=== PATIENT | female | born 1950 | race Caucasian/White ===

== ENCOUNTER 2017-12-30 06:18 | Observation (INO) ==
[2017-12-30] MEDS ORDERED: Levofloxacin 500 mg Premix Inj 500 MG/100 ML PIGGYBACK IV.SIG PRN (07:00)
[2017-12-30] MEDS ORDERED: Gentamicin/NS 80 mg Premix 100 ML IV.SIG PRN (07:01)
[2017-12-30] MEDS ORDERED: Metoprolol Tartrate 25 MG Tablet PO SCH (07:15)
[2017-12-30] MEDS ORDERED: Chlorhexidine Gluconate 2% 1 Pack (2 Cloths) TOPICAL SCH (07:15)
[2017-12-30] MEDS ORDERED: Bupivacaine/Epinephrine PF Inj 0.5% 10 ML Vial ONE (07:25)
[2017-12-30] MEDS ORDERED: Microfibrillar Collagen Hemostat 1 GM Packet TOPICAL ONE (07:26)
[2017-12-30] MEDS ORDERED: Sodium Chlor 0.9% Inj 500 ML IV.SIG SCH (08:00)
[2017-12-30] MEDS ORDERED: Naloxone Inj 0.4 MG/ML Vial IV.PUSH PRN (10:00)
[2017-12-30] MEDS ORDERED: Ibuprofen 600 MG Tablet PO PRN (10:24)
[2017-12-30] MEDS ORDERED: fentaNYL Citrate Inj 100 MCG/2 ML Ampul ONE (10:25)
[2017-12-30] MEDS ORDERED: HYDROmorphone PCA Inj 6 MG/30 ML PCA.VIAL PCA PRN (10:29)
[2017-12-30] MEDS ORDERED: *morphine SULFATE 4 MG/ML PERIprocedure ONLY ONE ×2 (10:29→10:53)
--- NOTE | 2017-12-30 10:40 | P.PCNOB ---
Pre-Op/Post-Op Diagnoses Operation Date: 12/30/17 08:00 <No data on this case meets the specified criteria> thickened endometrium, stenotic cervix Procedure: Procedures Operation Date: 12/30/17 08:00 <No data on this case meets the specified criteria> EUA , LAVH, BSO , cystoscopy Estimated blood loss (ml): 25 Anesthesia type: General Complications: none Fluids: crystalloid Fluid amount (mL): 800 Urine output (mL): 150 Specimen: uterus, left tube & ovary, right tube & ovary Disposition: PACU
[2017-12-30] MEDS ORDERED: HYDROmorphone PCA Inj 6 MG/30 ML PCA.VIAL PCA ONE (11:23)
[2017-12-30] MEDS ORDERED: HYDROmorphone PF Inj 2 MG/ML Vial ONE (11:23)
--- NOTE | 2017-12-30 12:26 | MP ---
cc: Verenice Louise MD DATE OF OPERATION: PREOPERATIVE DIAGNOSIS: Thickened endometrium, stenotic cervix. POSTOPERATIVE DIAGNOSIS: Thickened endometrium, stenotic cervix. PROCEDURE PERFORMED: Examination under anesthesia, laparoscopic-assisted vaginal hysterectomy, bilateral salpingo-oophorectomy, cystoscopy. SURGEON: Verenice Louise MD ANESTHESIA: General endotracheal anesthesia, Dr. Jimenez. FLUIDS: 800 mL crystalloid. ESTIMATED BLOOD LOSS: 25 mL URINE OUTPUT: 150 mL of clear yellow at the end of the procedure. FINDINGS: The uterus was approximately 8-10 weeks in size. No adnexal masses were palpable. PROCEDURE: The patient was taken to the operating room where general anesthesia was found to be adequate. She was then prepped and draped in the normal sterile fashion in the dorsal lithotomy position. A Lopes catheter was inserted into the urinary bladder using sterile technique. A weighted speculum was placed in the vagina. Single-tooth tenaculum applied to the anterior lip of the cervix. The cervix was then gently dilated with Roberto dilators sizes 9 through 13. The tenaculum was replaced with a single suture of 0 Vicryl on the anterior lip of the cervix. The medium VCare uterine manipulator was then placed through the cervix and the balloon was inflated. The cups were positioned. The remaining instruments were removed from the vagina. The gloves were changed and attention was turned to the abdominal portion of the procedure. A 5 mm skin incision was made just above the umbilicus and a 5 mm trocar and camera were inserted into the abdominal cavity under direct visualization. The abdomen was insufflated with approximately 3.5 liters of CO2 gas. Two additional trocars were placed in the right and left lower quadrants under direct visualization. The Harmonic scalpel was used to transect the round ligaments bilaterally. The bladder flap was created using the Harmonic scalpel and the bladder was gently dissected off of the anterior surface of the uterus and cervix. The infundibulopelvic ligaments were then transected bilaterally using the Harmonic scalpel. The broad ligaments and uterine arteries were transected bilaterally using the Harmonic scalpel. The vagina was then incised using the VCare as a guide, circumferentially around the cervix using the Harmonic scalpel. The uterus, cervix, tubes, and ovaries were then delivered vaginally and sent to pathology. Hemostasis was noted from all pedicles. The gas was allowed to escape from the abdomen. All of the instruments were removed from the abdominal cavity. The skin incisions were closed with 4-0 Monocryl. The vaginal cuff was closed using a running suture of 0 Vicryl. Hemostasis was assured. The Lopes catheter was used to instill approximately 250 mL of saline into the urinary bladder. The Lopes catheter was removed. Cystoscopy was performed and urine was noted to be effluxing from both of the ureteral meatuses. The cystoscope was removed. The Lopes catheter was replaced. The patient was awakened from anesthesia and transferred to recovery room in stable condition. The sponge, lap, needle and instrument counts were correct. PATHOLOGY: Uterus, cervix, fallopian tubes and ovaries. MD GUICHO Guzman/TL , 12:11 PM , 12:25 PM
[2017-12-30] MEDS ORDERED: Neostigmine Inj 5 MG/5 ML Syringe IV.PUSH ONE (17:52)
[2017-12-30] MEDS ORDERED: Lidocaine PF 1% Inj 5 ML Syringe INFILTRATN ONE (17:52)
[2017-12-30] MEDS ORDERED: Glycopyrrolate Inj 1 MG/5 ML Syringe IV.PUSH ONE (17:52)
[2017-12-30] MEDS ORDERED: Zolpidem Tartrate 5 MG Tablet PO PRN (21:00)
[2017-12-30] MEDS: Docusate Sodium 100 MG Capsule PO SCH (21:27)
[2017-12-31 05:19] LABS: Baso % (Auto) 0.2 % (0.0-2.0); Eos % (Auto) 0.1 % (0.0-4.0); Hematocrit 37.6 % (35.0-46.0); Hemoglobin 12.6 gm/dL (11.6-15.3); Lymph # (Auto) 0.7 th/mm3 (1.0-4.8); Lymph % (Auto) 7.8 % (9.0-44.0); Mean Corpuscular HGB Conc 33.4 % (32.0-36.0); Mean Corpuscular Hemoglobin 29.4 pg (27.0-34.0); Mean Corpuscular Volume 87.9 fL (80.0-100.0); Mean Platelet Volume 9.3 fL (7.0-11.0); Mono # (Auto) 0.6 th/mm3 (0.0-0.9); Neut # (Auto) 8.2 th/mm3 (1.8-7.7); Neut % (Auto) 85.9 % (16.0-70.0); Platelet Count 151 th/mm3 (150-450); Red Blood Count 4.27 mil/mm3 (4.00-5.30); Red Cell Distribution Width 14.5 % (11.6-17.2); White Blood Count 9.5 th/mm3 (4.0-11.0)
--- NOTE | 2017-12-31 08:03 | P.OBGPN ---
POD #1 s/p LAVH/BSO, doing well, no vomiting, pain controlled PE: VSS afeb Abd- soft , NT, ND, incisions C/D/I Ext: no ECC, NT VE min bleeding A/P: s/P LAVH/BSO for thickened ems, stenotic cervix d/c home today rto 2 wks, no lifting, nothing per vagina f/u pathology
[2017-12-31] MEDS ORDERED: hydroCHLOROthiazide 25 MG Tablet PO SCH (09:00)
[2017-12-31] MEDS: Docusate Sodium 100 MG Capsule PO SCH (09:08)
[2017-12-31] MEDS ORDERED: Sodium Chlor 0.9% Inj 500 ML IV.SIG ONE (15:00)
== END 2017-12-31 17:53 | disposition home or self-care (01) ==
LOC: HSDI 06:18 → H1EA 06:18 → HOR 06:18 → H1EA 12:11
PROVIDERS: ADMIT Obstetrics & Gynecology; ATTEND Obstetrics & Gynecology